=== PATIENT | male | born 1960 | race Caucasian/White ===

== ENCOUNTER 2023-01-29 15:43 | Emergency (ER) | payer OTHER ==
[~2023-01-29] VITALS: Ht 182.9 cm; Wt 121.4 kg
[2023-01-29 16:14] VITALS: BP 189/99
[2023-01-29] MEDS ORDERED: CIPR7.5D AS (17:10)
== END 2023-01-29 17:25 | disposition home or self-care (01) ==
LOC: EMS 15:50
DX: I10 Essential (primary) hypertension (principal); F17.210 Nicotine dependence, cigarettes, uncomplicated; Z98.890 Other specified postprocedural states
CPT/HCPCS: 99283; Z7502